=== PATIENT | male | born 1980 | race Caucasian/White ===

== ENCOUNTER 2019-11-04 20:01 | Emergency (ER) | payer OTHER ==
[2019-11-04 20:17] VITALS: BP 121/72; PULSE 85; TEMP 98.5; BMI 32.5
[2019-11-04] MEDS ORDERED: ACETAMINOPHEN 500 MG TABLET (FP) PO ONE (21:03)
[2019-11-04] MEDS ORDERED: diazePAM 5 MG TABLET PO ONE (21:04)
[2019-11-04] MEDS ORDERED: LIDOCAINE 5% TOPICAL PATCH TP ONE (21:04)
[2019-11-04] MEDS ORDERED: KETOROLAC TROMETHAMINE 60 MG/2 ML VIAL IM ONE (21:04)
[2019-11-04] MEDS ORDERED: KETOROLAC TROMETHAMINE 60 MG/2 ML VIAL ONE (21:32)
[2019-11-04] MEDS ORDERED: ACETAMINOPHEN 325 MG TABLET (FP) ONE (21:32)
[2019-11-04] MEDS ORDERED: diazePAM 5 MG TABLET ONE (21:33)
[2019-11-04] MEDS ORDERED: LIDOCAINE 5% TOPICAL PATCH ONE (21:33)
[2019-11-04] MEDS ORDERED: LIDOCAINE PATCH REMOVAL MC SCH (22:00)
== END 2019-11-04 22:09 | disposition home or self-care (01) ==
LOC: JER 20:01
PROC: 3E0233Z Introduction of Anti-inflammatory into Muscle, Percutaneous Approach (ICD-10-PCS; principal; 2019-11-04)
DX: M54.5 Low back pain (principal)
CPT/HCPCS: 72100-TC-FY; 99284-25

== ENCOUNTER 2020-06-03 15:13 | Emergency (ER) | payer OTHER ==
[2020-06-03 15:18] VITALS: BP 138/103; PULSE 107; TEMP 98.5; BMI 29.5
[2020-06-03] MEDS ORDERED: KETOROLAC TROMETHAMINE 60 MG/2 ML VIAL IM ONE (15:22)
[2020-06-03] MEDS ORDERED: KETOROLAC TROMETHAMINE 60 MG/2 ML VIAL ONE (15:22)
== END 2020-06-03 16:00 | disposition home or self-care (01) ==
LOC: JERFT 15:13
PROC: 3E0233Z Introduction of Anti-inflammatory into Muscle, Percutaneous Approach (ICD-10-PCS; principal; 2020-06-03)
DX: S20.222A Contusion of left back wall of thorax, initial encounter (principal)
CPT/HCPCS: 71101-TC-LT-FY; 99284-25

== ENCOUNTER 2023-04-22 05:53 | Emergency (ER) | payer OTHER ==
[2023-04-22 06:02] VITALS: BMI 34.7
[2023-04-22] MEDS ORDERED: ACETAMINOPHEN 1000 MG/100 ML BAG IVPB ONE (07:29)
[2023-04-22] MEDS ORDERED: SODIUM CHLORIDE 0.9% 500 ML INFUS.BAG IV ONE ×2 (07:37→09:43)
[2023-04-22] MEDS ORDERED: ACETAMINOPHEN INJECTION 100 ML IVPB ONE (08:28)
[2023-04-22 08:36] LABS: BASO % 0.7 % (0-2.0); EOS % 1.5 % (0-4.5); HEMATOCRIT 41.9 % (35.4-49); HEMOGLOBIN 14.5 GM/dL (11.7-16.9); LYMPH % 14.4 % (8-40); MCH 29.6 pg (25.7-33.7); MCHC 34.7 g/dl (32.0-35.9); MEAN CELL VOLUME 85.3 fl (80-96); MEAN PLT VOLUME 9.2 fl (7.5-11.1); MONO % 11.1 % (3.8-10.2); NEUT % 72.3 % (42.8-82.8); PLATELET COUNT 211 10^3/uL (134-434); RBC 4.91 M/mm3 (4.00-5.60); RDW 12.8 % (11.9-15.9); WHITE BLOOD COUNT 4.6 K/mm3 (4.0-10.0)
[2023-04-22 08:55] LABS: POTASSIUM 4.2 mmol/L (3.5-5.1)
[2023-04-22 08:57] LABS: CALCIUM 8.7 mg/dL (8.5-10.1)
[2023-04-22 08:58] LABS: ALBUMIN 3.9 g/dl (3.4-5.0); BLOOD UREA NITROGEN 11.4 mg/dL (7-18)
[2023-04-22 09:01] LABS: CREATININE 0.9 mg/dL (0.55-1.3)
[2023-04-22 09:03] LABS: BILIRUBIN,TOTAL 0.4 mg/dL (0.2-1); TOT PROT 7.8 g/dl (6.4-8.2)
[2023-04-22] MEDS ORDERED: OSELTAMIVIR PHOSPHATE 45 MG CAPSULE PO ONE (09:32)
[2023-04-22 09:51] VITALS: BP 107/60; PULSE 103; RESP 19; TEMP 100.9
[2023-04-22] MEDS ORDERED: IBUPROFEN 400 MG TABLET (FP) PO ONE ×2 (09:54→10:17)
[2023-04-22] MEDS ORDERED: OSELTAMIVIR PHOSPHATE 75 MG CAPSULE PO ONE (10:15)
[2023-04-22] MEDS ORDERED: OSELTAMIVIR PHOSPHATE 75 MG CAPSULE ONE (10:17)
== END 2023-04-22 10:43 | disposition home or self-care (01) ==
LOC: JER 05:53
PROC: 3E033NZ Introduction of Analgesics, Hypnotics, Sedatives into Peripheral Vein, Percutaneous Approach (ICD-10-PCS; principal; 2023-04-22)
DX: J10.1 Influenza due to other identified influenza virus with other respiratory manifestations (principal); M79.10 Myalgia, unspecified site; R05.9 Cough, unspecified; R50.9 Fever, unspecified; Z20.822 Contact with and (suspected) exposure to COVID-19
CPT/HCPCS: 0241U-QW; 36415; 71046-TC-FY; 80053; 85025; 93005; 93010; 96374; 99285-25